=== PATIENT | male | born 1935 | race Caucasian/White ===

== ENCOUNTER 2017-07-08 13:14 | Day surgery (SDC) | payer MEDICARE, OTHER ==
[~2017-07-08] VITALS: Ht 175.3 cm; Wt 83.5 kg
[~2017-07-08 13:14] MED LIST: ACET325 PO; ASPI81EC; ATOR40TA PO; Advil200 M1 PO; NAPR500 PO; OMEP20ER PO; OXYACE5T; WARF2 PO
== END 2017-07-08 15:06 | disposition home or self-care (01) ==
LOC: ORSCSDS 13:14
PROVIDERS: Surgery
PROC: 0DJ08ZZ Inspection of Upper Intestinal Tract, Via Natural or Artificial Opening Endoscopic (ICD-10-PCS; principal; 2017-07-08 14:30)
PROC: 0DBK8ZX Excision of Ascending Colon, Via Natural or Artificial Opening Endoscopic, Diagnostic (ICD-10-PCS; principal; 2017-07-08 14:30)
DX: K21.9 Gastro-esophageal reflux disease without esophagitis (principal); D12.2 Benign neoplasm of ascending colon; Z12.11 Encounter for screening for malignant neoplasm of colon; E78.5 Hyperlipidemia, unspecified; Z79.82 Long term (current) use of aspirin; Z79.899 Other long term (current) drug therapy
CPT/HCPCS: 88305; J0330; J1980; J2405; J7120

== ENCOUNTER → 2019-08-21 | Outpatient (CLI) | payer OTHER ==
[~2019-08-21] MED LIST changes: +ASPI81CH PO; -ASPI81EC; +DORZOPSO BOTHEYES; +MULTI VITAMIN1 EACH PO
== END | disposition home or self-care (01) ==
LOC: PLD 12:50 → LAB SHORT 12:50
DX: D48.5 Neoplasm of uncertain behavior of skin (principal)
CPT/HCPCS: 88305

== ENCOUNTER 2022-01-15 10:37 | Day surgery (SDC) | payer OTHER ==
[~2022-01-15] VITALS: Ht 175.3 cm; Wt 82.4 kg
== END 2022-01-15 12:43 | disposition home or self-care (01) ==
LOC: ORSCSDS 10:37
PROVIDERS: Ophthalmology
PROC: 08RJ3JZ Replacement of Right Lens with Synthetic Substitute, Percutaneous Approach (ICD-10-PCS; principal; 2022-01-15 12:00)
PROC: 08923ZZ Drainage of Right Anterior Chamber, Percutaneous Approach (ICD-10-PCS; principal; 2022-01-15 12:00)
DX: H25.13 Age-related nuclear cataract, bilateral (principal); H40.1112 Primary open-angle glaucoma, right eye, moderate stage; Z79.899 Other long term (current) drug therapy; Z79.82 Long term (current) use of aspirin; I10 Essential (primary) hypertension; E78.5 Hyperlipidemia, unspecified; Z85.46 Personal history of malignant neoplasm of prostate
CPT/HCPCS: J2001; J2250; J3010; J3301; J7040; V2632

== ENCOUNTER 2022-01-22 10:45 | Day surgery (SDC) | payer OTHER ==
[~2022-01-22] VITALS: Ht 175.3 cm; Wt 82.3 kg
[2022-01-22] MEDS ORDERED: CARBIDOPA-LEVO1 EA10 (11:04)
== END 2022-01-22 12:33 | disposition home or self-care (01) ==
LOC: ORSCSDS 10:45
PROVIDERS: Ophthalmology
PROC: 08933ZZ Drainage of Left Anterior Chamber, Percutaneous Approach (ICD-10-PCS; principal; 2022-01-22 12:00)
PROC: 08DK3ZZ Extraction of Left Lens, Percutaneous Approach (ICD-10-PCS; principal; 2022-01-22 12:00)
DX: H25.12 Age-related nuclear cataract, left eye (principal); Z96.1 Presence of intraocular lens; H40.9 Unspecified glaucoma; E78.00 Pure hypercholesterolemia, unspecified; G20 Parkinson's disease; Z85.46 Personal history of malignant neoplasm of prostate; K21.9 Gastro-esophageal reflux disease without esophagitis; I10 Essential (primary) hypertension; Z79.82 Long term (current) use of aspirin; Z79.899 Other long term (current) drug therapy
CPT/HCPCS: J2001; J2250; J3010; J3301; J7040; V2632

== ENCOUNTER → 2022-06-09 | Outpatient (CLI) | payer OTHER ==
[~2022-06-09] MED LIST changes: +CARBIDOPA-LEVO1 EA10
== END | disposition home or self-care (01) ==
LOC: LAB 12:52 → PLD 12:52 → LAB SHORT 12:52
DX: D23.111 Other benign neoplasm of skin of right upper eyelid, including canthus (principal)
CPT/HCPCS: 88305

== ENCOUNTER → 2022-12-16 | Outpatient (CLI) | payer OTHER ==
[2022-12-16 15:33] LABS: Stool Occult Bld Immuno 1 Negative (NEGATIVE)
== END | disposition home or self-care (01) ==
LOC: LAB SHORT 09:00 → LAB 09:00
PROVIDERS: Family Medicine
DX: Z12.11 Encounter for screening for malignant neoplasm of colon (principal)
CPT/HCPCS: G0328